=== PATIENT | male | born 1955 | race Caucasian/White ===

== ENCOUNTER 2017-05-08 16:33 | Emergency (ER) | payer BC, OTHER ==
--- NOTE | 2017-05-08 16:53 | CPEKG ---
Heart Rate: 53 RR Interval: 1132 P-R Interval: 156 QRSD Interval: 96 QT Interval: 416 QTC Interval: 391 P Leola: 40 QRS Leola: 40 T Wave Leola: 51 EKG Severity - BORDERLINE ECG - EKG Impression: SINUS RHYTHM Electronically Signed By: Jerson Rivera 08-May-2017 17:08:50
--- NOTE | 2017-05-08 17:01 | EDPHY ---
H & P Stated Complaint: Sent by PCP for eval of chest tightness x "years",worse over past 2-3 days Time Seen by Provider: 05/08/17 16:44 HPI/ROS: CHIEF COMPLAINT: Episodic chest pain HISTORY OF PRESENT ILLNESS: The patient presents to the ED with a history of episodic chest pain for the past 2-3 years. The patient reports nonexertional chest pain which she has attributed to stress and anxiety. Over the past 2-3 days the patient's symptoms have been a little atypical in the sense this chest pain has become more centralized. He had no complaints of neck pain, arm paresthesias, headache or focal neurologic complaints. The patient denies history of fall or trauma. He is currently chest pain-free. He denies any pleuritic chest pain, asymmetric calf pain or swelling or additional complaints. The patient tells me that his chest pain is always been nonexertional. He does have a history of high cholesterol which is currently not being treated. He denies history of hypertension or diabetes. The patient does have a family history of coronary artery disease. The patient's father was stented in his 60s. REVIEW OF SYSTEMS: A comprehensive 10 point review of systems is otherwise negative aside from elements mentioned in the history of present illness. - Personal History Current Tetanus Diphtheria and Acellular Pertussis (TDAP): Yes - Medical/Surgical History Other PMH: anxiety. Hyperlipidemia. Dad had stent at age 60 - Social History Smoking Status: Never smoked - Physical Exam Exam: General Appearance: Alert, no distress Eyes: Pupils equal and round no pallor or injection ENT, Mouth: Mucous membranes moist Respiratory: There are no retractions, lungs are clear to auscultation Cardiovascular: Regular rate and rhythm Gastrointestinal: Abdomen is soft and nontender, no masses, bowel sounds normal Neurological: A&O, normal motor function, normal sensory exam, normal cranial nerves Skin: Warm and dry, no rashes Musculoskeletal: Neck is supple nontender Extremities: symmetrical, full range of motion Psychiatric: Patient is oriented X 3, there is no agitation Constitutional: Initial Vital Signs Temperature (C) 36.7 C 05/08/17 16:33 Heart Rate 62 05/08/17 16:33 Respiratory Rate 16 05/08/17 16:33 Blood Pressure 131/83 H 05/08/17 16:33 O2 Sat (%) 98 05/08/17 16:33 O2 Delivery Mode Room Air Allergies/Adverse Reactions: No Known Allergies Allergy (Verified 05/08/17 16:33) Home Medications: Medication Instructions Recorded ALPRAZolam [Xanax] 0 mg PO PRN 12/06/11 Medical Decision Making - Diagnostics EKG Interpretation: EKG: Complete interpretation has been separately recorded in the [facility] archive. Summary impression: Sinus rhythm, no ST segment elevation or depression Imaging Results: Imaging Impressions Chest X-Ray 05/08/17 16:59 Impression: No acute pulmonary disease. ED Course/Re-evaluation: The patient presents to the ED with a several year history of nonexertional chest pain. There has been a slight change in the character of his pain over the weekend in terms of its location. The patient reports his pain continues to be nonexertional. The patient does have a family history of coronary artery disease. The patient also has a history of hyperlipidemia. The patient remained chest pain-free throughout his stay in the emergency department. His last index episode of chest pain began 48 hours ago. The patient's EKG demonstrates no evidence of acute ischemia. The patient's troponin is normal. At this point time we have excluded myocardial infarction. The patient has been informed that we have not fully exclude the presence of coronary artery disease. The patient is appropriate to follow up with Cardiology in the next 72 hours for a treadmill stress test. The patient will be referred to our on-call service delivery management consultant for a follow-up visit. He understands to return to the ED immediately for any recurrent chest pain or shortness of breath. He will contact Cardiology tomorrow to schedule a follow-up visit. Differential Diagnosis: Differential diagnosis considered includes acute coronary syndrome, pericarditis , esophageal spasm, pneumothorax, myocarditis - Data Points Laboratory Results: Laboratory Results 05/08/17 16:50 05/08/17 16:50 05/08/17 05/08/17 16:50 16:50 WBC 5.32 10^3/uL 10^3/uL (3.80-9.50) RBC 4.69 10^6/uL 10^6/uL (4.40-6.38) Hgb 15.1 g/dL g/dL (13.7-17.5) Hct 41.5 % % (40.0-51.0) MCV 88.5 fL fL (81.5-99.8) MCH 32.2 pg pg (27.9-34.1) MCHC 36.4 g/dL g/dL (32.4-36.7) RDW 12.9 % % (11.5-15.2) Plt Count 267 10^3/uL 10^3/uL (150-400) MPV 9.2 fL fL (8.7-11.7) Neut % (Auto) 41.1 % % (39.3-74.2) Lymph % (Auto) 47.0 % H % (15.0-45.0) Swain % (Auto) 10.2 % % (4.5-13.0) Eos % (Auto) 0.9 % % (0.6-7.6) Baso % (Auto) 0.4 % % (0.3-1.7) Nucleat RBC Rel Count 0.0 % % (0.0-0.2) Absolute Neuts (auto) 2.19 10^3/uL 10^3/uL (1.70-6.50) Absolute Lymphs (auto) 2.50 10^3/uL 10^3/uL (1.00-3.00) Absolute Monos (auto) 0.54 10^3/uL 10^3/uL (0.30-0.80) Absolute Eos (auto) 0.05 10^3/uL 10^3/uL (0.03-0.40) Absolute Basos (auto) 0.02 10^3/uL 10^3/uL (0.02-0.10) Absolute Nucleated RBC 0.00 10^3/uL 10^3/uL (0-0.01) Immature Gran % 0.4 % % (0.0-1.1) Immature Gran # 0.02 10^3/uL 10^3/uL (0.00-0.10) Sodium 142 mEq/L mEq/L (134-144) Potassium 3.7 mEq/L mEq/L (3.5-5.2) Chloride 101 mEq/L mEq/L (97-110) Carbon Dioxide 28 mEq/l mEq/l (22-31) Anion Gap 13 mEq/L mEq/L (8-16) BUN 15 mg/dL mg/dL (7-23) Creatinine 1.0 mg/dL mg/dL (0.7-1.3) Estimated GFR > 60 Glucose 68 mg/dL L mg/dL (70-100) Calcium 9.7 mg/dL mg/dL (8.5-10.4) Troponin I < 0.012 ng/mL ng/mL (0.000-0.034) Departure - Departure Disposition: Home, Routine, Self-Care Clinical Impression: Chest pain Condition: Good Instructions: Chest Pain (ED) Additional Instructions: 1. Based upon the testing done in the Emergency Department today we see no evidence of a heart attack. 2. We are unable to fully exclude coronary artery disease based upon the testing available in the Emergency Department. 3. For this reason, we would like you to be seen by cardiology for consideration of additional testing within the next 3 days. 4. Please contact the service delivery management consultant you have been referred to schedule this appointment as soon as possible. Their offices are typically open from 8:30am- 5pm M-F. 5. Please return to the Emergency Department immediately for any recurrent chest pain, difficulty breathing or other concerns. Referrals: Noe Drummond MD [Medical Doctor] - As per Instructions
[2017-05-08 17:03] LABS: % IMMATURE GRANULYOCYTES 0.4 % (0.0-1.1); ABSOLUTE IMMATURE GRANULOCYTES 0.02 10^3/uL (0.00-0.10); ADD DIFF? NO; ADD MORPH? NO; ADD SCAN? NO; ATYPICAL LYMPHOCYTE FLAG 10 (0-99); FRAGMENT RBC FLAG 0 (0-99); HEMATOCRIT 41.5 % (40.0-51.0); HEMOGLOBIN 15.1 g/dL (13.7-17.5); LEFT SHIFT FLG 0 (0-99); LIPEMIA HEMOLYSIS FLAG 90 (0-99); MEAN CELL HEMOGLOBIN 32.2 pg (27.9-34.1); MEAN CELL HEMOGLOBIN CONCENTR. 36.4 g/dL (32.4-36.7); MEAN CELL VOLUME 88.5 fL (81.5-99.8); MEAN PLATELET VOLUME 9.2 fL (8.7-11.7); PLATELET CLUMPS FLAG 0 (0-99); PLATELET COUNT 267 10^3/uL (150-400); RED BLOOD CELL COUNT 4.69 10^6/uL (4.40-6.38); RED CELL DISTRIBUTION WIDTH 12.9 % (11.5-15.2)
[2017-05-08 17:15] LABS: ANION GAP 13 mEq/L (8-16); CALCIUM 9.7 mg/dL (8.5-10.4); CARBON DIOXIDE 28 mEq/l (22-31); CHLORIDE 101 mEq/L (97-110); GLOMERULAR FILTRATION RATE > 60; GLUCOSE 68 mg/dL (70-100); POTASSIUM 3.7 mEq/L (3.5-5.2); SODIUM 142 mEq/L (134-144)
[2017-05-08 17:26] LABS: TROPONIN I < 0.012 ng/mL (0.000-0.034)
[2017-05-08 18:47] VITALS: BP 127/81; PULSE 52; RESP 16; TEMP 98.2; O2SAT 96
== END 2017-05-08 18:47 | disposition home or self-care (01) ==
DX: R07.9 Chest pain, unspecified (principal)

== ENCOUNTER 2017-06-23 09:36 | Day surgery (SDC) | payer OTHER ==
[2017-06-23] MEDS ORDERED: diphenhydrAMINE 25 MG CAP PO ONE ×2 (09:42→10:22)
[2017-06-23] MEDS ORDERED: FAMOTIDINE 20 MG TAB PO ONE (09:42)
[2017-06-23] MEDS ORDERED: ASPIRIN EC 325 MG TAB PO ONE ×2 (09:42→10:22)
[2017-06-23] MEDS ORDERED: DIAZEPAM 5 MG TAB PO ONE (09:42)
[2017-06-23] MEDS ORDERED: NS 1,000 ML IV ONE (09:42)
--- NOTE | 2017-06-23 10:09 | CPEKG ---
Heart Rate: 59 RR Interval: 1017 P-R Interval: 152 QRSD Interval: 88 QT Interval: 420 QTC Interval: 416 P Davis: 35 QRS Davis: 44 T Wave Davis: 39 EKG Severity - NORMAL ECG - EKG Impression: SINUS RHYTHM Electronically Signed By: Mack Solano 23-Jun-2017 13:50:13
[2017-06-23] MEDS ORDERED: LIDOCAINE 1% 300 MG/30 ML SDV ONE (10:19)
--- NOTE | 2017-06-23 10:19 | PDPROPOC ---
Sedation Plan of Care Sedation Plan of Care: vital signs stable, mental status noted, patient educated of risks, benefits, alternatives, patient can tolerate sedation ASA Classification: ASA 2 Planned drugs: fentanyl, midazolam Mallampati Score: Class 1 Mallampati Reference Image: Patient passed 3-3-2 rule?: Yes
--- NOTE | 2017-06-23 10:19 | PDHPUP ---
History & Physical Update H&P update statement: This history and physical update is based on an assessment of the patient which was completed after admission or registration (within 24 hours), but prior to the surgery/procedure. H&P update: H&P reviewed & patient examined, no change in patient's condition since H&P completed
[2017-06-23] MEDS ORDERED: HEPARIN 10,000 UNIT/10 ML MDV ONE (10:20)
[2017-06-23] MEDS ORDERED: VERAPAMIL 5 MG/2 ML VIAL ONE (10:20)
[2017-06-23] MEDS ORDERED: MIDAZOLAM 2 MG/2 ML VIAL ONE (10:20)
[2017-06-23] MEDS ORDERED: fentaNYL 100 MCG/2 ML INJ ONE (10:20)
[2017-06-23] MEDS ORDERED: IOPAMIDOL (ISOVUE-370) 150 ML BTL IV ONE (10:20)
[2017-06-23] MEDS ORDERED: FAMOTIDINE 20 MG TAB ONE (10:22)
[2017-06-23] MEDS ORDERED: DIAZEPAM 5 MG TAB ONE (10:22)
[2017-06-23 10:29] LABS: PLATELET COUNT 235 10^3/uL (150-400)
[2017-06-23 10:38] LABS: INR 0.94 (0.83-1.16); PROTIME(PATIENT) 12.8 SEC (12.0-15.0)
--- NOTE | 2017-06-23 11:09 | PDDXCAT ---
Diagnostic Cath Note - . Date: 06/23/17 Floor Cleaner: Juan C Indication: Class I/II angina, intolerance to med therapy or failure to respond High-risk criteria on non-invasive testing: stress-induced moderate-size multiple perfusion defects - Procedure Access: right wrist Procedure: left heart catheterization, coronary angiography, left ventriculogram - Materials Left Heart Cath materials: standard multipack (JL4, JR4, pigtail) - Findings-Left Heart Catheterization LM: Normal LAD: Normal LCX: Dominant: Normal RCA: Non dominant: Normal EDP: 15 mm of mercury LVEF: 60 Wall motion: Normal Complications: Normal Estimated blood loss: <50ml Closure method: TR Band Assessment: Angiographically normal coronary arteries. Normal left ventricular systolic function. Patient Problems: Problems Problem Status Onset Abnormal exercise tolerance test Acute
== END 2017-06-23 14:06 | disposition home or self-care (01) ==
LOC: FCATH 09:36
PROVIDERS: ATTEND Internal Medicine Interventional Cardiology
DX: R07.9 Chest pain, unspecified (principal); R94.39 Abnormal result of other cardiovascular function study; M10.9 Gout, unspecified; E78.5 Hyperlipidemia, unspecified; Z87.442 Personal history of urinary calculi; Z79.82 Long term (current) use of aspirin
CPT/HCPCS: 93005; 93458; C1769; J1644; J2250; J3010; Q9967